=== PATIENT | male | born 1980 | race Caucasian/White ===

== ENCOUNTER 2016-05-03 23:08 | Emergency (ER) | payer OTHER ==
--- NOTE | ~2016-05-03 | EKG ---
PATIENT: MAG FINE UNIT #: [id number] Ventricular Rate: 87 BPM Atrial Rate: 87 BPM P-R Interval: 176 ms QRS Duration: 94 ms Q-T Interval: 344 ms QTC Calculation(Bezet): 413 ms P [place]: 29 degrees Calculated R [place]: 15 degrees Calculated T [place]: 51 degrees Diagnosis Line: Normal sinus rhythm Diagnosis Line: Normal ECG Diagnosis Line: No previous ECGs available Diagnosis Line: Confirmed by GIOVANNI RAMÍREZ MD ([id number]) on Diagnosis Line: 05/05/2016 12:04:50 AM INTERPRETING MD: DARRELL DWYER
[~2016-05-03 23:08] MED LIST: ADVIL200 M2 PO; HYDROCODON-ACE1 EAC7 PO; IBUPROFEN800 MG PO; MEDROL4 MG/DOSE- PO; ONDANSETRON HCL4 M1 PO; ORUDIS75 M1 DOB; PEN-VEE K PO; VICODIN 5/500 T1 TAB PO
[2016-05-03 23:20] LABS: BASOPHIL% 0.6 % (0-2.5); EOSINOPHIL# 0.1 X10e3 (0-0.7); HEMATOCRIT 42.7 % (38.0-50.0); HEMOGLOBIN 14.5 gm/dL (13.0-16.0); LYMPHOCYTE% 30.4 % (17.0-45.0); MEAN CELL VOLUME 82.8 FL (83-96); MEAN CORPUSCULAR HEMOGLOBIN 28.2 PG (28-34); MEAN PLATELET VOLUME 8.1 FL (6.5-11.5); MONOCYTE# 0.8 X10e3 (0-1.0); MONOCYTE% 12.7 % (3.0-12.0); NEUTROPHIL# 3.6 X10e3 (1.5-7.1); NEUTROPHIL% 54.3 % (40-75); PLATELET COUNT 219 X10e3 (140-420); RED BLOOD COUNT 5.16 X10e (3.90-5.60); RED CELL DISTRIBUTION WIDTH 14.1 % (11.0-15.5); WHITE BLOOD COUNT 6.6 X10e3 (4.0-10.5)
[2016-05-03 23:21] LABS: DIFF IND NO
[2016-05-03 23:40] LABS: BLOOD UREA NITROGEN 14 mg/dL (9-23); CALCIUM SERUM 8.7 mg/dL (8.4-10.2); CARBON DIOXIDE 24 mmol/L (22-31); CHLORIDE 108 mmol/L (100-111); GLOM FILT RATE Estimated ABOVE60 mL/min (>60); GLUCOSE FASTING 102 mg/dL (70-110); POTASSIUM 3.6 mmol/L (3.5-5.1); SODIUM 138 mmol/L (135-145)
== END 2016-05-04 00:20 | disposition home or self-care (01) ==
LOC: CED 23:08
PROVIDERS: Emergency Medicine
DX: R55 Syncope and collapse (principal); R42 Dizziness and giddiness; Z79.899 Other long term (current) drug therapy
CPT/HCPCS: 36415; 80048; 85025; 93005; 99284

== ENCOUNTER 2016-05-17 03:18 | Emergency (ER) | payer OTHER ==
--- NOTE | ~2016-05-17 | CR2 ---
[facility] A Service of [facility] RADIOLOGY TEXT RESULTS PATIENT: MAG FINE LOCATION: [facility]SA : 81 UNIT #: [id number] AGE: [address]: Mariano Myers MD SEX: M ORDER DR: [id number] [id number] [facility]. [place], [place] [address] [id number] E MR#: [id number] Acc #: [id number] NAME: MAG FINE : 1980 SEX: M STUDY DATE/TIME: 05/17/2016 3:00 UNIT: [facility] ROOM: STUDY DESCRIPTION: CR Abdomen Acute Series Attending Physician: Mariano Myers M.D. Ordering Physician: Mariano Myers M.D. Primary Care Physician: Lizett Turner M.D. MEDICAL IMAGING REPORT This report is preliminary unless electronic signature is present EXAM Acute abdominal series, 05/17/2016. INDICATION 35-year-old male with generalized abdominal pain for 3 days. TECHNIQUE Frontal chest and upright and supine views of the abdomen were performed. COMPARISON STUDIES Correlation is made with CT 05/16/2016. FINDINGS Cardiac silhouette is within normal limits. Vascularity unremarkable. Lungs clear. Upper abdomen demonstrates no free air. The gallbladder surgically absent. Vascular appearing calcifications in the pelvis. Moderate stool burden in the right colon. No dilated air-filled loops of bowel are seen. IMPRESSION Negative acute abdominal series. Dictated by... Dean Reed M.D. THIS IS AN ELECTRONICALLY VERIFIED REPORT Dean Reed M.D. at 05/17/2016 10:12 PM SUJEY/ramón TD: 05/17/2016 14:58 [facility] A Service [facility] RADIOLOGY TEXT RESULTS PATIENT: MAG FINE LOCATION: [facility] : [birth year] UNIT #: [id number] AGE: [address]: Mariano Myers MD SEX: M ORDER DR: SALEEM #: [id number] MEDICAL IMAGING REPORT Page 1 of 1 COPY
[2016-05-17 03:27] LABS: BASOPHIL% 0.5 % (0-2.5); EOSINOPHIL# 0.1 X10e3 (0-0.7); EOSINOPHIL% 1.2 % (0.0-7.0); HEMATOCRIT 39.5 % (38.0-50.0); HEMOGLOBIN 13.3 gm/dL (13.0-16.0); LYMPHOCYTE# 1.6 X10e3 (1.0-3.5); LYMPHOCYTE% 25.5 % (17.0-45.0); MEAN CELL VOLUME 83.6 FL (83-96); MEAN CORPUSCULAR HEMOGLOBIN 28.2 PG (28-34); MEAN CORPUSCULAR HGB CONC 33.8 g/dL (30-36); MEAN PLATELET VOLUME 8.7 FL (6.5-11.5); MONOCYTE# 0.5 X10e3 (0-1.0); MONOCYTE% 8.8 % (3.0-12.0); PLATELET COUNT 208 X10e3 (140-420); RED BLOOD COUNT 4.73 X10e (3.90-5.60); RED CELL DISTRIBUTION WIDTH 14.2 % (11.0-15.5); WHITE BLOOD COUNT 6.2 X10e3 (4.0-10.5)
[2016-05-17 03:28] LABS: DIFF IND NO
[2016-05-17 03:54] LABS: ALBUMIN SERUM 4.1 g/dL (3.5-5.0); BILIRUBIN, DIRECT 0.1 mg/dL (0.0-0.2); BILIRUBIN,INDIRECT 0.4 mg/dL (0.0-0.9); BILIRUBIN,TOTAL 0.5 mg/dL (0.2-2.0); BUN/CREATININE RATIO 12.22; CALCIUM SERUM 8.9 mg/dL (8.4-10.2); CREATININE SERUM 0.9 mg/dL (0.6-1.4); POTASSIUM 3.8 mmol/L (3.5-5.1); PROTEIN TOTAL SERUM 6.7 g/dL (6.0-8.3)
[2016-05-17 04:14] LABS: AMPHETAMINE NEG (NEG); BARBITURATES NEG (NEG); BENZODIAZEPINES NEG (NEG); COCAINE NEG (NEG); MARIJUANA NEG (NEG); OPIATES POS (NEG); TRICYCLIC ANTIDEPRESSANTS NEG (NEG); U METHADONE NEG (NEG)
[2016-05-17 05:34] LABS: URINE SOURCE CLEAN CATCH
[2016-05-17 05:36] LABS: URINE APPEARANCE CLEAR; URINE BILIRUBIN NEG (NEG); URINE BLOOD NEG (NEG); URINE COLOR YELLOW; URINE GLUCOSE NORM (NORM); URINE KETONE NEG (NEG); URINE LEUKOCYTE ESTERASE NEG (NEG); URINE NITRATE NEG (NEG); URINE PH 6.5 (5-8); URINE PROTEIN NEG (NEG); URINE SPECIFIC GRAVITY 1.015 (1.003-1.035); URINE UROBILINOGEN NORM (NORM)
[2016-05-17 05:39] LABS: CULTURE INDICATED? NO
== END 2016-05-17 06:30 | disposition home or self-care (01) ==
LOC: CED 03:18
PROVIDERS: Emergency Medicine
DX: R10.9 Unspecified abdominal pain (principal); F17.210 Nicotine dependence, cigarettes, uncomplicated; Z79.899 Other long term (current) drug therapy
CPT/HCPCS: 36415; 74022; 80048; 80076; 80307; 81003; 82150; 83690; 85025; 99284

== ENCOUNTER 2016-05-20 23:59 | Emergency (ER) | payer OTHER ==
--- NOTE | ~2016-05-20 | CR72 ---
[facility] A Service of [facility] RADIOLOGY TEXT RESULTS PATIENT: MAG FINE LOCATION: M[place]SA : [birth year] UNIT #: [id number] AGE: [address]: Bipin Cervantes MD SEX: M ORDER DR: [id number] [facility] [address] [place]. [place], [place] [address] [id number] E MR#: [id number] Acc #: [id number] NAME: MAG FINE : 1980 SEX: M STUDY DATE/TIME: 05/20/2016 23:55 UNIT: [facility] ROOM: STUDY DESCRIPTION: CR Chest Single View Portable Attending Physician: Bipin Cervantes M.D. Ordering Physician: Bipin Cervantes M.D. Primary Care Physician: Lizett Turner M.D. MEDICAL IMAGING REPORT This report is preliminary unless electronic signature is present EXAM Frontal chest 05/20/2016 INDICATIONS 35-year-old male with chest pain that extends down the left arm. symptoms began this evening. TECHNIQUE Frontal chest compared with 05/17/2016 FINDINGS Cardiac silhouette is borderline in size. There is increased prominence of the mediastinum probably related to portable technique and lower lung volumes. There is bronchovascular crowding. No effusion dense consolidation or pneumothorax. IMPRESSION 1. Borderline cardiac size and increased prominence of the mediastinum probably related to lower lung volumes and portable technique. 2. There is no effusion dense consolidation or pneumothorax. Dictated by... Dean Reed M.D. THIS IS AN ELECTRONICALLY VERIFIED REPORT Dean Reed M.D. at 05/21/2016 9:53 PM SUJEY/keya TD: 05/21/2016 07:32 JOB #: [id number] [facility] A Service [facility] RADIOLOGY TEXT RESULTS PATIENT: MAG FINE LOCATION: [place]SA : [birth year] UNIT #: [id number] AGE: [address]: Bipin Cervantes MD SEX: M ORDER DR: MEDICAL IMAGING REPORT Page 1 of 1 COPY
[2016-05-20 23:54] LABS: POC - CKMB 1.4 ng/mL (0.0-7.9); POC - TROPONIN <0.05 ng/mL (<=0.05)
[2016-05-20 23:58] LABS: BASOPHIL% 0.5 % (0-2.5); EOSINOPHIL# 0.1 X10e3 (0-0.7); EOSINOPHIL% 1.6 % (0.0-7.0); HEMATOCRIT 39.8 % (38.0-50.0); HEMOGLOBIN 13.4 gm/dL (13.0-16.0); LYMPHOCYTE# 2.2 X10e3 (1.0-3.5); MEAN CELL VOLUME 83.6 FL (83-96); MEAN CORPUSCULAR HEMOGLOBIN 28.1 PG (28-34); MEAN CORPUSCULAR HGB CONC 33.6 g/dL (30-36); MEAN PLATELET VOLUME 8.7 FL (6.5-11.5); MONOCYTE# 0.6 X10e3 (0-1.0); MONOCYTE% 9.5 % (3.0-12.0); NEUTROPHIL# 3.5 X10e3 (1.5-7.1); NEUTROPHIL% 54.4 % (40-75); PLATELET COUNT 188 X10e3 (140-420); RED BLOOD COUNT 4.76 X10e (3.90-5.60); RED CELL DISTRIBUTION WIDTH 13.7 % (11.0-15.5); WHITE BLOOD COUNT 6.5 X10e3 (4.0-10.5)
[2016-05-20 23:59] LABS: DIFF IND NO
[2016-05-21 00:27] LABS: ALBUMIN SERUM 3.9 g/dL (3.5-5.0); BILIRUBIN,TOTAL 0.4 mg/dL (0.2-2.0); BUN/CREATININE RATIO 12.22; CALCIUM SERUM 8.8 mg/dL (8.4-10.2); CREATININE SERUM 0.9 mg/dL (0.6-1.4); POTASSIUM 3.7 mmol/L (3.5-5.1); PROTEIN TOTAL SERUM 6.4 g/dL (6.0-8.3)
[2016-05-21 00:28] LABS: BILIRUBIN, DIRECT 0.1 mg/dL (0.0-0.2); BILIRUBIN,INDIRECT 0.3 mg/dL (0.0-0.9)
[2016-05-21 01:31] LABS: POC - CKMB 1.1 ng/mL (0.0-7.9); POC - TROPONIN <0.05 ng/mL (<=0.05)
== END 2016-05-21 01:50 | disposition home or self-care (01) ==
LOC: CED 23:59
PROVIDERS: Emergency Medicine
DX: R07.9 Chest pain, unspecified (principal); F17.200 Nicotine dependence, unspecified, uncomplicated; Z90.49 Acquired absence of other specified parts of digestive tract; Z79.899 Other long term (current) drug therapy
CPT/HCPCS: 36415; 71010; 80048; 80076; 82553; 84484; 85025; 99284

== ENCOUNTER 2016-05-21 07:49 | Emergency (ER) | payer OTHER ==
--- NOTE | ~2016-05-21 | CT71 ---
[facility] A Service of [facility] RADIOLOGY TEXT RESULTS PATIENT: MAG FINE LOCATION: M[place]SA : [birth year] UNIT #: [id number] AGE: [address]: Liuz Shay MD SEX: M ORDER DR: [id number] [facility] [address] [place], [place] [address] [id number] E MR#: [id number] Acc #: [id number] NAME: MAG FINE : 1980 SEX: M STUDY DATE/TIME: 05/21/2016 7:27 UNIT: [facility] ROOM: STUDY DESCRIPTION: CT Head Wo Contrast Attending Physician: Luiz Shay M.D. Ordering Physician: Luiz Shay M.D. Primary Care Physician: Lizett Turner M.D. MEDICAL IMAGING REPORT This report is preliminary unless electronic signature is present EXAM Head CT no contrast 05/21/2016 PROCEDURE Axial unenhanced head CT COMPARISON 04/13/2016. HISTORY Difficulty concentrating and right side headache for [address] exam was performed with one or more of the following radiation dose reduction techniques: automatic exposure control, adjustment of mA and/or kV according to patient size, and iterative reconstruction. FINDINGS Unchanged since the prior study is a small posterior fossa presumed arachnoid cyst, but there is no hydrocephalus or hemorrhage or mass. Brain parenchymal density is normal. The extracranial soft tissues are normal except for some right high parietal scalp soft tissue swelling. This is also unchanged since the recent outside imaging from [facility]. IMPRESSION Brain is normal. There is a small posterior fossa arachnoid cyst, but the appearance is unchanged since 04/13/2016, and the exam is otherwise remarkable only for some high right parietal scalp soft tissue swelling which is also unchanged. No acute findings. Dictated by... Kleber Hammonds M.D. [facility] A Service of [facility] RADIOLOGY TEXT RESULTS PATIENT: MAG FINE LOCATION: [place] : [birth year] UNIT #: [id number] AGE: [address]: Luiz Shay MD SEX: M ORDER DR: THIS IS AN ELECTRONICALLY VERIFIED REPORT Kleber Hammonds M.D. at 05/23/2016 5:01 PM Pedro Luis TD: 05/21/2016 09:12 JOB #: [id number] MEDICAL IMAGING REPORT Page 1 of 1 COPY
--- NOTE | ~2016-05-21 | EKG ---
PATIENT: MAG FINE UNIT #: [id number] Ventricular Rate: 57 BPM Atrial Rate: 57 BPM P-R Interval: 214 ms QRS Duration: 108 ms Q-T Interval: 404 ms QTC Calculation(Bezet): 393 ms P [place]: 31 degrees Calculated R [place]: 50 degrees Calculated T [place]: 51 degrees Diagnosis Line: Sinus bradycardia with sinus arrhythmia with 1st Diagnosis Line: degree A-V block Diagnosis Line: ST elevation, consider early repolarization, Diagnosis Line: pericarditis, or injury Diagnosis Line: Borderline ECG Diagnosis Line: No previous ECGs available Diagnosis Line: Confirmed by YUMIKO BURNS MD ([id number]) on 05/21/2016 Diagnosis Line: 9:21:53 PM INTERPRETING MD: GRANT DWYER
--- NOTE | ~2016-05-21 | EKG ---
PATIENT: MAG FINE UNIT #: [id number] Ventricular Rate: 68 BPM Atrial Rate: 68 BPM P-R Interval: 204 ms QRS Duration: 92 ms Q-T Interval: 364 ms QTC Calculation(Bezet): 387 ms P [place]: 29 degrees Calculated R [place]: 32 degrees Calculated T [place]: 38 degrees Diagnosis Line: Normal sinus rhythm Diagnosis Line: ST elevation, consider early repolarization Diagnosis Line: Normal ECG Diagnosis Line: When compared with ECG of 03-MAY-2016 22:57, Diagnosis Line: No significant change was found Diagnosis Line: Confirmed by YUMIKO BURNS MD ([id number]) on 05/21/2016 Diagnosis Line: 9:20:02 PM INTERPRETING MD: GRANT DWYER
== END 2016-05-21 08:05 | disposition home or self-care (01) ==
LOC: CED 07:49
DX: R51 Headache (principal); Z90.49 Acquired absence of other specified parts of digestive tract; F17.210 Nicotine dependence, cigarettes, uncomplicated; Z79.899 Other long term (current) drug therapy
CPT/HCPCS: 70450; 93005; 96372; 99284; J1100; J1885